=== PATIENT | female | born 1995 | race Caucasian/White ===

== ENCOUNTER 2021-04-20 09:51 | Emergency (ER) | payer OTHER, MEDICAID ==
[~2021-04-20] VITALS: Ht 157.5 cm; Wt 73.9 kg
[2021-04-20 09:51] VITALS: BP_SYST 153
[2021-04-20] MEDS ORDERED: IBUP-1969 PO (10:55)
[2021-04-20] MEDS ORDERED: HYDR-3917 PO (10:55)
== END 2021-04-20 11:02 | disposition home or self-care (01) ==
LOC: SED 09:51
DX: S22.41XA Multiple fractures of ribs, right side, initial encounter for closed fracture (principal); Z79.899 Other long term (current) drug therapy; V47.5XXA Car driver injured in collision with fixed or stationary object in traffic accident, initial encounter; Y93.89 Activity, other specified; Y92.89 Other specified places as the place of occurrence of the external cause; Y99.8 Other external cause status
CPT/HCPCS: 71045; 71120-TC; 99284